=== PATIENT | female | born 1980 | race Caucasian/White ===

== ENCOUNTER → 2021-03-07 | Outpatient (CLI) | payer BC ==
[2021-03-07 09:48] LABS: HCT 48.5 % (34.0-46.0); HGB 15.6 gm/dL (11.4-16.0); MCH 30.3 pg (25.0-35.0); MCHC 32.2 g/dL (31.0-37.0); MCV 94.2 fL (80.0-100.0); Mean Platelet Volume 8.6; Platelet Count 247 k/uL (150-450); RBC 5.15 m/uL (3.80-5.40)
[2021-03-07 18:37] LABS: Chol/HDL Ratio 2.73 Ratio; HDL Cholesterol 61.1 mg/dL (40.00-60.00); LDL Cholesterol,Calculated 51.5 mg/dL (0.0-131.0); VLDL Calculation 54.4 mg/dL (5.00-40.00)
--- NOTE | 2021-03-09 14:07 | MM ---
Reason for exam: screening (asymptomatic). Baseline mammogram. History: Patient has history of other cancer at age 2. Taking hormonal contraceptives for 25 years. Physical Findings: Nurse did not find any significant physical abnormalities on exam. MG Screening Mammo w CAD Bilateral CC and MLO view(s) were taken. There are scattered fibroglandular densities. Finding: There are 7-8 mm circumscribed oval masses in the upper outer quadrant, middle, posterior position of both breasts, possible low lying lymph nodes or thin walled cysts. ASSESSMENT: Incomplete: need additional imaging evaluation, BI-RAD 0 RECOMMENDATION: Ultrasound of both breasts. [facility] will attempt to contact patient to return for ultrasound.
== END | disposition home or self-care (01) ==
LOC: RADMAMWWP 08:46
PROVIDERS: ATTEND Obstetrics & Gynecology
DX: Z12.31 Encounter for screening mammogram for malignant neoplasm of breast (principal)
CPT/HCPCS: 77067; 80061; 85027

== ENCOUNTER → 2021-03-23 | Outpatient (CLI) | payer BC ==
--- NOTE | 2021-03-26 13:43 | USB ---
Reason for exam: additional evaluation requested from abnormal screening. History: Patient has history of other cancer at age 2. Taking hormonal contraceptives for 25 years. Physical Findings: Nurse did not find any significant physical abnormalities on exam. US Breast Workup Limited CARA Right limited breast ultrasound including focal area of concern, retroareolar and axilla demonstrates a 0.5 x 0.5 x 0.7cm lymph node at 9 o'clock. Left limited breast ultrasound including focal area of concern, retroareolar and axilla demonstrates a 0.6 x 0.4 x 0.4cm lymph node at 3 o'clock. Likely mammographic correlate. Precautionary 6 month follow up recommended as it was the patient's baseline. Right scanned 9-12 o'clock and left scanned 12-3 o'clock. These results were verbally communicated with the patient and result sheet given to the patient on 03/23/21. ASSESSMENT: Probably benign, BI-RAD 3 RECOMMENDATION: Follow-up diagnostic mammogram of both breasts in 6 months.
== END | disposition home or self-care (01) ==
LOC: RADUSWWP 14:12
PROVIDERS: ATTEND Obstetrics & Gynecology
DX: R92.8 Other abnormal and inconclusive findings on diagnostic imaging of breast (principal)

== ENCOUNTER → 2022-01-22 | Outpatient (CLI) | payer BC ==
--- NOTE | 2022-01-22 07:52 | MM ---
Reason for Exam: Follow-up at short interval from prior study. Last screening mammogram was performed 10 month(s) ago. Patient History: Menarche at age 12. Other cancer, age 2. Currently using Hormonal Contraceptives, for 25 years. Risk Values: Reta 5 year model risk: 0.4%. NCI Lifetime model risk: 7.3%. Prior Study Comparison: 03/07/2021 Bilateral Screening Mammogram, [facility]. 03/23/2021 Bilateral Diagnostic Ultrasound, [facility]. Tissue Density: There are scattered fibroglandular densities. Findings: Analyzed By CAD. Stable masses in the bilateral breasts. Overall Assessment: Benign, BI-RAD 2 Management: Screening Mammogram of both breasts in 1 year. A clinical breast exam by your physician is recommended on an annual basis and results should be correlated with mammographic findings. This exam should not preclude additional follow-up of suspicious palpable abnormalities. Results were given to the patient verbally at the time of exam. Electronically signed and approved by: Tay Roland DO
== END | disposition home or self-care (01) ==
LOC: RADMAMWWP 07:23
PROVIDERS: ATTEND Obstetrics & Gynecology
DX: R92.8 Other abnormal and inconclusive findings on diagnostic imaging of breast (principal)
CPT/HCPCS: 77062; 77066

== ENCOUNTER → 2023-02-04 | Outpatient (CLI) | payer BC ==
[2023-02-04 16:39] LABS: Chol/HDL Ratio 2.14 Ratio; LDL Cholesterol,Calculated 40.7 mg/dL (0.0-131.0)
--- NOTE | 2023-02-05 07:42 | MM ---
Reason for Exam: Screening (asymptomatic). Last mammogram was performed 1 year(s) and 1 month(s) ago. Patient History: Menarche at age 12. Patient has no children. Currently using Hormonal Contraceptives, for 25 years. Last menstrual period: 01/27/2023 Risk Values: Reta 5 year model risk: 0.7%. NCI Lifetime model risk: 10.9%. Prior Study Comparison: 03/07/2021 Bilateral Screening Mammogram, [facility]. 01/22/2022 Bilateral MG 3D diag mammo w/cad [facility], [facility]. Tissue Density: The breast tissue is heterogeneously dense. This may lower the sensitivity of mammography. Findings: Analyzed By CAD. There is no suspicious group of microcalcifications or new suspicious mass in either breast. Stable chronic nodularity within both breasts. Overall Assessment: Benign, BI-RAD 2 Management: Screening Mammogram of both breasts in 1 year. A clinical breast exam by your physician is recommended on an annual basis and results should be correlated with mammographic findings. Note on Reta scores and lifetime risk: 1. A Reta score greater than 3% is considered moderate risk. If this is the case, consider specialist referral to assess eligibility for a risk reducing agent. If overall lifetime risk for the development of breast cancer is 20% or higher, the patient may qualify for future screening with alternating mammogram and breast MRI. Electronically signed and approved by: Armond Carty D.O.
== END | disposition home or self-care (01) ==
LOC: RADMAMWWP 07:34
PROVIDERS: ATTEND Obstetrics & Gynecology
DX: Z12.31 Encounter for screening mammogram for malignant neoplasm of breast (principal); Z13.220 Encounter for screening for lipoid disorders
CPT/HCPCS: 77063; 77067; 80061

== ENCOUNTER → 2024-02-10 | Outpatient (CLI) | payer BC ==
[2024-02-10 08:58] VITALS: BP 167/110; PULSE 61; RESP 15; TEMP 98.3
--- NOTE | 2024-02-10 09:48 | P.HPOB ---
History of Present Illness H&P Date: 02/10/24 Chief Complaint: The patient is here for her routine gynecologic exam and ma mmogram. This is a 43-year-old G0 with an LMP of 01/26/2024. The patient is here to establish with this office. She previously saw Dr. Colvin for her gynecologic care. She was last seen by him about 1 year ago. Her last Pap smear was on 01/17/2022 and was negative. She has been on oral contraception since about age 16. She states she does not want to ever get . Menstrual periods are regular every month on oral contraception. She is without gynecologic complaints. Review of Systems The patient has gained 5 pounds over the last year. She denies respiratory, cardiac, or G.I. problems. Past Medical History Past Medical History: Cancer Additional Past Medical History / Comment(s): Leukemia AT AGE 2. 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 She has no other history of STDs. History of Any Multi-Drug Resistant Organisms: None Reported Past Surgical History: Adenoidectomy, Ear Surgery Additional Past Surgical History / Comment(s): Bilateral myringotomy. Varicose vein procedures including injections and laser procedures. Past Anesthesia/Blood Transfusion Reactions: No Reported Reaction Past Psychological History: No Psychological Hx Reported Smoking Status: Former smoker Past Alcohol Use History: Occasional (About 6 drinks per week.) Additional Past Alcohol Use History / Comment(s): Quit smoking in 2011. Past Drug Use History: None Reported Additional History: She has been since 2010. 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 - Past Family History Father Additional Family Medical History / Comment(s): Is a pacemaker for an arrhythmia. Mother Additional Family Medical History / Comment(s): . Multiple sclerosis. Medications and Allergies Home Medications Medication Instructions Recorded Confirmed Type Norethindrone-Ethin. Estradiol 1 tab PO DAILY 02/10/24 02/10/24 History [Ortho-Novum 7-7-7-28 Tablet] Allergies Allergy/AdvReac Type Severity Reaction Status Date / Time No Known Allergies Allergy Unverified 02/10/24 08:49 Exam Vital Signs Temp Pulse Resp BP Pulse Ox 02/10/24 08:52 98.3 F 61 15 167/110 97 Intake and Output 02/09/24 02/10/2424 22:59 06:59 14:59 Other: Weight 92.533 kg Height 5 feet 7 inches, weight 204 pounds, BMI 32.0. Repeat blood pressure 154/90. This is a well-developed well-nourished white female who is alert and oriented times 3 in no acute distress. HEENT: Within normal limits. NECK: Supple without mass or thyromegaly. CHEST AND LUNGS: Clear to auscultation. HEART: Regular rate and rhythm. BREASTS: Are without mass or discharge. AXILLARY EXAM: Negative for adenopathy. BACK: Negative for CVA tenderness. ABDOMEN: Soft, nontender, without palpable masses. PELVIC EXAM: Normal external genitalia. Cervix and vagina appear normal. There is no unusual discharge. There is no evidence of prolapse. The uterus is midposition, nongravid size and nontender. There are no palpable adnexal masses or tenderness. RECTAL EXAM: negative for mass or tenderness and is negative for occult blood. EXTREMITIES: Nontender. IMPRESSION: 1. 43-year-old female with normal gynecologic exam. 2. On combination oral contraception. 3. Elevated blood pressure with no history of chronic hypertension. PLAN: 1. Pap smear cotest was performed. 2. Self breast awareness was discussed with the patient. We have also discussed symptoms associated with inflammatory breast cancer. 3. Screening mammogram will be done today. 4. We have discussed her elevated blood pressure. She understands that control pills can sometimes affect the blood pressure. The control pills that she is on can also increase the risk for blood clots and this could also increase the risk for heart attack and stroke, especially with elevated blood pressure. We have discussed other options for control including tubal sterilization, vasectomy for her , and the intrauterine device, barrier methods such as condoms, and progestin only control pills. She would like to use the progestin only control pills. She understands that the effectiveness may not be as great as commendation oral contraception. We have discussed how the timing of the problems would be most effective approximately 4 to 8 hours before sexual activity. She will plan on taking them around dinnertime if she is sexually active mostly at night. 5. I have recommended that she check her own blood pressure on a regular basis and follow-up with her PCP for blood pressure elevations. 6. The prescription for norethindrone 0.35 mg daily will be sent to [facility] in [place]. 7. She was advised to return in one year for her annual well woman exam and as needed.
--- NOTE | 2024-02-11 18:31 | MM ---
Reason for Exam: Screening (asymptomatic). Last screening mammogram was performed 12 month(s) ago. Patient History: Menarche at age 12. Patient has no children. Premenopausal. Currently using Hormonal Contraceptives, for 25 years. Last menstrual period: 01/26/2024 Risk Values: Reta 5 year model risk: 0.8%. NCI Lifetime model risk: 10.8%. Prior Study Comparison: 03/07/2021 Bilateral Screening Mammogram, [facility]. 01/22/2022 Bilateral MG 3D diag mammo w/cad [facility], [facility]. 02/04/2023 Bilateral MG 3D screening mammo w/cad, [facility]. Tissue Density: There are scattered areas of fibroglandular density. Findings: Analyzed By CAD. Chronic nodularity on both sides. There is no suspicious group of microcalcifications or new suspicious mass in either breast. Overall Assessment: Benign, BI-RAD 2 Management: Screening Mammogram of both breasts in 1 year. . Patient should continue monthly self-breast exams. A clinical breast exam by your physician is recommended on an annual basis. This exam should not preclude additional follow-up of suspicious palpable abnormalities. Note on Reta scores and lifetime risk: 1. A Reta score greater than 3% is considered moderate risk. If this is the case, consider specialist referral to assess eligibility for a risk reducing agent. 2. If overall lifetime risk for the development of breast cancer is 20% or higher, the patient may qualify for future screening with alternating mammogram and breast MRI. [facility], , 02/11/2024 6:27 PM. Electronically signed and approved by: Kurt Levi M.D. Radiologist
== END ==
LOC: WWCWWP 08:32
PROVIDERS: ATTEND Obstetrics & Gynecology
DX: Z12.31 Encounter for screening mammogram for malignant neoplasm of breast (principal); R92.8 Other abnormal and inconclusive findings on diagnostic imaging of breast; R92.323 Mammographic fibroglandular density, bilateral breasts; R03.0 Elevated blood-pressure reading, without diagnosis of hypertension; Z87.891 Personal history of nicotine dependence
CPT/HCPCS: 77063; 77067